=== PATIENT | female | born 1990 | race Two or more races ===

== ENCOUNTER 2017-09-04 04:37 | Emergency (ER) | payer BC, OTHER ==
[2017-09-04] MEDS ORDERED: Sodium Chloride 0.9% 10 ML Syringe FLUSH PRN (04:47)
[2017-09-04] MEDS ORDERED: Aspirin 81 MG Tab.Chew PO ONE (04:47)
[2017-09-04] MEDS ORDERED: Sodium Chloride 0.9% 1,000 ML IV ONE (04:47)
[2017-09-04] MEDS ORDERED: Sodium Chloride 0.9% 2.5 ML Syringe FLUSH PRN ×2 (04:47)
[2017-09-04] MEDS ORDERED: LORazepam 2 MG/ML SDV IVPUSH ONE (04:49)
--- NOTE | 2017-09-04 05:00 | EDM.PDOC ---
ED HPI GENERAL MEDICAL PROBLEM - General Chief Complaint: Chest Pain Stated Complaint: CHEST PAIN Time Seen by Provider: 09/04/17 04:47 Source of Information: Reports: Patient History Limitations: Reports: No Limitations - History of Present Illness INITIAL COMMENTS - FREE TEXT/NARRATIVE: HISTORY AND PHYSICAL: History of present illness: 27-year-old female presenting the emergency department with chief complaint of chest pain 2 hours. Patient states that she began have sharp stabbing chest pain approximately 2 hours ago. His continuous sharp and substernal without radiation. She has no associated nausea or vomiting but some shortness of breath and diaphoresis. Denies any significant cardiac history. She does have a history of asthma. States that she's had a cough for the last 2 weeks and was recently given a prescription for azithromycin as well as a antitussive/expectorant with codeine by a PA at [facility]. Was told that he thought she may have pertussis. She had recent travel to [place] and returned with a "stomach bug" that resulted in diarrhea for a few days but this has passed. Denies any leg pain or history of coagulation disorders. Patient denies any associated palpitations, syncopal episodes, or focal neurologic deficits. On initial exam patient is tearful and significantly anxious. Pain is not reproducible on exam. Cardiac tachycardia normal S1-S2 regular rhythm, lungs clear to breath sounds bilaterally, Abdelrahman negative. No acute findings on general exam. After 1 mg of Ativan patient did feel much improved, but still having mild substernal chest pain with deep breaths. Patient given 2 mg morphine. Review of systems: As per history of present illness and below otherwise all systems reviewed and negative. Past medical history: As per history of present illness and as reviewed below otherwise noncontributory. Surgical history: As per history of present illness and as reviewed below otherwise noncontributory. Social history: No reported history of drug or alcohol abuse. Family history: As per history of present illness and as reviewed below otherwise noncontributory. Physical exam: HEENT: Atraumatic, normocephalic, pupils reactive, negative for conjunctival pallor or scleral icterus, mucous membranes moist, throat clear, neck supple, nontender, trachea midline. Lungs: Clear to auscultation, breath sounds equal bilaterally, chest nontender. Heart: S1S2, regular, negative for clicks, rubs, or JVD. Abdomen: Soft, nondistended, nontender. Negative for masses or hepatosplenomegaly. Negative for costovertebral tenderness. Pelvis: Stable nontender. Genitourinary: Deferred. Rectal: Deferred. Extremities: Atraumatic, negative for cords or calf pain. Neurovascular unremarkable. Neuro: Awake, alert, oriented. Cranial nerves II through XII unremarkable. Cerebellum unremarkable. Motor and sensory unremarkable throughout. Exam nonfocal. Diagnostics: CBC, CMP, troponin, INR, EKG, chest x-ray, UA Therapeutics: 324 mg ASA, 1 mg Ativan IV 1, 1 L normal saline IV 1, 2 mg IV morphine 1 Tessalon Perles Impression: Atypical chest pain Pleuritic chest pain Pleurisy Plan: CBC showed mild leukocytosis however patient is currently being treated with azithromycin and I think it is most likely due to stress response when she initially presented. She is been afebrile with no other signs of infection. Chest x-ray was unremarkable. CMP did show some mild bump in her creatinine to 1.1 and her urine analysis was fairly concentrated suspect mild dehydration. I did have her 1 L normal saline and instructed her to continue to push fluids. EKG showed no signs of ischemia/ST changes and troponin was negative. Patient most likely has pleuritic chest pain from pleurisy from her constant coughing over the past 2-3 weeks. Instructed her to use ibuprofen up to 3000 mg a day and follow-up with her primary care provider. She should return to emergency department if she has any new or worsening symptoms. chest Pain Score (Numeric/FACES): 8 - Related Data Allergies Allergy/AdvReac Type Severity Reaction Status Date / Time No Known Allergies Allergy Verified 09/04/17 04:44 Home Meds: Home Meds Albuterol Sulfate [Proventil Hfa] 1 puff INH ASDIRECTED 09/04/17 [History] Cetirizine [ZyrTEC] 0 mg PO ASDIRECTED 09/04/17 [History] Past Medical History - Past Health History Medical/Surgical History: Denies Medical/Surgical History Respiratory History: Reports: Asthma Social & Family History - Family History Family Medical History: Noncontributory - Tobacco Use Smoking Status *Q: Never Smoker - Recreational Drug Use Recreational Drug Use: No ED ROS GENERAL - Review of Systems Review Of Systems: ROS reveals no pertinent complaints other than HPI. ED EXAM, GENERAL - Physical Exam Exam: See Below Course - Vital Signs Last Recorded V/S: Last Vital Signs Temp 98.5 F 09/04/17 04:37 Pulse 98 09/04/17 05:46 Resp 19 09/04/17 05:46 BP 112/64 09/04/17 05:46 Pulse Ox 96 09/04/17 05:46 - Orders/Labs/Meds Orders: Active Orders 24 hr Category Date Time Status Cardiac Monitoring [RC] . DIRECTED Care 09/04/17 04:47 Active EKG Documentation Completion [RC] STAT Care 09/04/17 04:47 Active Oxygen Therapy [RC] ASDIRECTED Care 09/04/17 04:47 Active Pulse Oximetry [RC] ASDIRECTED Care 09/04/17 04:47 Active Chest 1V Frontal [CR] Stat Exams 09/04/17 04:47 Taken HCG QUALITATIVE,URINE [URCHEM] Stat Lab 09/04/17 04:56 Ordered UA W/MICROSCOPIC [URIN] Stat Lab 09/04/17 04:56 Ordered Sodium Chloride 0.9% [Saline Flush] Med 09/04/17 04:47 Active 10 ml FLUSH ASDIRECTED PRN Sodium Chloride 0.9% [Saline Flush] Med 09/04/17 04:47 Active 2.5 ml FLUSH ASDIRECTED PRN Sodium Chloride 0.9% [Saline Flush] Med 09/04/17 04:47 Active 2.5 ml FLUSH ASDIRECTED PRN Saline Lock Insert [OM.PC] Stat Oth 09/04/17 04:47 Ordered Medication Orders Sodium Chloride (Saline Flush) 2.5 ml FLUSH ASDIRECTED PRN PRN Reason: Keep Vein Open Last Admin: 09/04/17 04:55 Dose: 2.5 ml Sodium Chloride (Saline Flush) 10 ml FLUSH ASDIRECTED PRN PRN Reason: Keep Vein Open Last Admin: 09/04/17 04:56 Dose: 10 ml Sodium Chloride (Saline Flush) 2.5 ml FLUSH ASDIRECTED PRN PRN Reason: Keep Vein Open Labs: Laboratory Tests 09/04/17 09/04/17 09/04/17 Range/Units 04:55 04:55 04:55 WBC 16.79 H (4.0-11.0) K/uL RBC 4.86 (4.30-5.90) M/uL Hgb 14.4 (12.0-16.0) g/dL Hct 41.6 (36.0-46.0) % MCV 85.6 (80.0-98.0) fL MCH 29.6 (27.0-32.0) pg MCHC 34.6 (31.0-37.0) g/dL RDW Std Deviation 40.2 (28.0-62.0) fl RDW Coeff of [place] 13 (11.0-15.0) % Plt Count 364 (150-400) K/uL MPV 9.80 (7.40-12.00) fL Neut % (Auto) 86.0 H (48.0-80.0) % Lymph % (Auto) 5.2 L (16.0-40.0) % [place] % (Auto) 2.9 (0.0-15.0) % Eos % (Auto) 5.7 (0.0-7.0) % Baso % (Auto) 0.2 (0.0-1.5) % Neut # (Auto) 14.4 H (1.4-5.7) K/uL Lymph # (Auto) 0.9 (0.6-2.4) K/uL [place] # (Auto) 0.5 (0.0-0.8) K/uL Eos # (Auto) 1.0 H (0.0-0.7) K/uL Baso # (Auto) 0.0 (0.0-0.1) K/uL Nucleated RBC % 0.0 /100WBC Nucleated RBCs # 0 K/uL INR 1.07 D-Dimer, Quantitative 0.43 (0.0-0.52) mg/LFEU Sodium 137 (136-145) mmol/L Potassium 3.5 (3.5-5.1) mmol/L Chloride 100 (98-107) mmol/L Carbon Dioxide 21.9 (21.0-32.0) mmol/L BUN 23 H (7.0-18.0) mg/dL Creatinine 1.1 H (0.6-1.0) mg/dL Est Cr Clr Drug Dosing 72.55 mL/min Estimated GFR (MDRD) > 60.0 ml/min Glucose 124 H (74-106) mg/dL Calcium 9.2 (8.5-10.1) mg/dL Total Bilirubin 1.0 (0.2-1.0) mg/dL AST 28 (15-37) IU/L ALT 27 (14-63) IU/L Alkaline Phosphatase 96 (46-116) U/L Troponin I < 0.050 (0.000-0.056) ng/mL Total Protein 8.7 H (6.4-8.2) g/dL Albumin 4.2 (3.4-5.0) g/dL Globulin 4.5 H (2.0-3.5) g/dL Albumin/Globulin Ratio 0.9 L (1.3-2.8) Urine Color Urine Appearance Urine pH (5.0-8.0) Ur Specific [place] (1.001-1.035) Urine Protein (NEGATIVE) mg/dL Urine Glucose (UA) (NEGATIVE) mg/dL Urine Ketones (NEGATIVE) mg/dL Urine Occult Blood (NEGATIVE) Urine Nitrite (NEGATIVE) Urine Bilirubin (NEGATIVE) Urine Urobilinogen (<2.0) EU/dL Ur Leukocyte Esterase (NEGATIVE) Urine RBC (0-2/HPF) Urine WBC (0-5/HPF) Ur Epithelial Cells (NONE-FEW) Amorphous Sediment (NEGATIVE) Urine Bacteria (NEGATIVE) Urine Mucus (NONE-MOD) Urinalysis Comment Urine HCG, Qual (NEGATIVE) 09/04/17 09/04/17 Range/Units 04:56 04:56 WBC (4.0-11.0) K/uL RBC (4.30-5.90) M/uL Hgb (12.0-16.0) g/dL Hct (36.0-46.0) % MCV (80.0-98.0) fL MCH (27.0-32.0) pg MCHC (31.0-37.0) g/dL RDW Std Deviation (28.0-62.0) fl RDW Coeff of [place] (11.0-15.0) % Plt Count (150-400) K/uL MPV (7.40-12.00) fL Neut % (Auto) (48.0-80.0) % Lymph % (Auto) (16.0-40.0) % [place] % (Auto) (0.0-15.0) % Eos % (Auto) (0.0-7.0) % Baso % (Auto) (0.0-1.5) % Neut # (Auto) (1.4-5.7) K/uL Lymph # (Auto) (0.6-2.4) K/uL [place] # (Auto) (0.0-0.8) K/uL Eos # (Auto) (0.0-0.7) K/uL Baso # (Auto) (0.0-0.1) K/uL Nucleated RBC % /100WBC Nucleated RBCs # K/uL INR D-Dimer, Quantitative (0.0-0.52) mg/LFEU Sodium (136-145) mmol/L Potassium (3.5-5.1) mmol/L Chloride (98-107) mmol/L Carbon Dioxide (21.0-32.0) mmol/L BUN (7.0-18.0) mg/dL Creatinine (0.6-1.0) mg/dL Est Cr Clr Drug Dosing mL/min Estimated GFR (MDRD) ml/min Glucose (74-106) mg/dL Calcium (8.5-10.1) mg/dL Total Bilirubin (0.2-1.0) mg/dL AST (15-37) IU/L ALT (14-63) IU/L Alkaline Phosphatase (46-116) U/L Troponin I (0.000-0.056) ng/mL Total Protein (6.4-8.2) g/dL Albumin (3.4-5.0) g/dL Globulin (2.0-3.5) g/dL Albumin/Globulin Ratio (1.3-2.8) Urine Color YELLOW Urine Appearance SLT CLOUDY Urine pH 5.5 (5.0-8.0) Ur Specific [place] >= 1.030 (1.001-1.035) Urine Protein TRACE (NEGATIVE) mg/dL Urine Glucose (UA) NEGATIVE (NEGATIVE) mg/dL Urine Ketones 40 H (NEGATIVE) mg/dL Urine Occult Blood LARGE H (NEGATIVE) Urine Nitrite NEGATIVE (NEGATIVE) Urine Bilirubin SMALL H (NEGATIVE) Urine Urobilinogen 0.2 (<2.0) EU/dL Ur Leukocyte Esterase NEGATIVE (NEGATIVE) Urine RBC 25-30 (0-2/HPF) Urine WBC 6-8 (0-5/HPF) Ur Epithelial Cells FEW (NONE-FEW) Amorphous Sediment FEW (NEGATIVE) Urine Bacteria FEW (NEGATIVE) Urine Mucus FEW (NONE-MOD) Urinalysis Comment Urine HCG, Qual NEGATIVE (NEGATIVE) Meds: Medications Generic Name Dose Route Start Last Admin Trade Name Freq PRN Reason Stop Dose Admin Sodium Chloride 2.5 ml 09/04/17 04:47 09/04/17 04:55 Saline Flush FLUSH 2.5 ml ASDIRECTED PRN Administration Keep Vein Open Sodium Chloride 10 ml 09/04/17 04:47 09/04/17 04:56 Saline Flush FLUSH 10 ml ASDIRECTED PRN Administration Keep Vein Open Sodium Chloride 2.5 ml 09/04/17 04:47 Saline Flush FLUSH ASDIRECTED PRN Keep Vein Open Discontinued Medications Generic Name Dose Route Start Last Admin Trade Name Freq PRN Reason Stop Dose Admin Aspirin 324 mg 09/04/17 04:47 09/04/17 04:56 Aspirin PO 09/04/17 04:48 324 mg ONETIME ONE Administration Sodium Chloride 1,000 mls @ 999 mls/hr 09/04/17 04:47 09/04/17 04:57 Normal Saline IV 09/04/17 05:47 999 mls/hr .Bolus ONE Administration Lorazepam 1 mg 09/04/17 04:49 09/04/17 04:57 Ativan IVPUSH 09/04/17 04:50 1 mg ONETIME ONE Administration Morphine Sulfate 2 mg 09/04/17 05:32 09/04/17 05:52 Morphine IVPUSH 09/04/17 05:33 2 mg ONETIME ONE Administration Departure - Departure Time of Disposition: 06:05 Disposition: Home, Self-Care 01 Condition: Good Clinical Impression: Pleurisy without effusion, Atypical chest pain - Discharge Information Referrals: PCP,None [Primary Care Provider] - Forms: ED Department Discharge Additional Instructions: My general discharge The following information is given to patients seen in the emergency department who are being discharged to home. This information is to outline your options for follow-up care. We provide all patients seen in our emergency department with a follow-up referral. The need for follow-up, as well as the timing and circumstances, are variable depending upon the specifics of your emergency department visit. If you don't have a primary care physician on staff, we will provide you with a referral. We always advise you to contact your personal physician following an emergency department visit to inform them of the circumstance of the visit and for follow-up with them and/or the need for any referrals to a consulting specialist. The emergency department will also refer you to a specialist when appropriate. This referral assures that you have the opportunity for follow-up care with a specialist. All of these measure are taken in an effort to provide you with optimal care, which includes your follow-up. Under all circumstances we always encourage you to contact your private physician who remains a resource for coordinating your care. When calling for follow-up care, please make the office aware that this follow-up is from your recent emergency room visit. If for any reason you are refused follow-up, please contact the [facility] Emergency Department at and asked to speak to the emergency department charge nurse. [facility] [address] [place] [phone] [facility] - Women's Health [address] [place] [id number] 1. Take ibuprofen up to 3000 mg a day for pain and inflammation. 2. Take Tessalon for cough. 3. Continue to take previous prescription from another provider. 4. Follow-up with primary care provider. 5. Return to emergency department if any new or worsening symptoms. - My Orders Last 24 Hours: My Active Orders 09/04/17 04:47 Cardiac Monitoring [RC] . DIRECTED EKG Documentation Completion [RC] STAT Oxygen Therapy [RC] ASDIRECTED Pulse Oximetry [RC] ASDIRECTED Chest 1V Frontal [CR] Stat Sodium Chloride 0.9% [Saline Flush] 10 ml FLUSH ASDIRECTED PRN Sodium Chloride 0.9% [Saline Flush] 2.5 ml FLUSH ASDIRECTED PRN Sodium Chloride 0.9% [Saline Flush] 2.5 ml FLUSH ASDIRECTED PRN Saline Lock Insert [OM.PC] Stat 09/04/17 04:56 HCG QUALITATIVE,URINE [URCHEM] Stat UA W/MICROSCOPIC [URIN] Stat - Assessment/Plan Last 24 Hours: My Active Orders 09/04/17 04:47 Cardiac Monitoring [RC] . DIRECTED EKG Documentation Completion [RC] STAT Oxygen Therapy [RC] ASDIRECTED Pulse Oximetry [RC] ASDIRECTED Chest 1V Frontal [CR] Stat Sodium Chloride 0.9% [Saline Flush] 10 ml FLUSH ASDIRECTED PRN Sodium Chloride 0.9% [Saline Flush] 2.5 ml FLUSH ASDIRECTED PRN Sodium Chloride 0.9% [Saline Flush] 2.5 ml FLUSH ASDIRECTED PRN Saline Lock Insert [OM.PC] Stat 09/04/17 04:56 HCG QUALITATIVE,URINE [URCHEM] Stat UA W/MICROSCOPIC [URIN] Stat
[2017-09-04] MEDS ORDERED: Morphine 2 MG/ML Syringe IVPUSH ONE (05:32)
[2017-09-04 05:44] LABS: CHLORIDE,CL 100 mmol/L (98-107); SODIUM,NA 137 mmol/L (136-145)
[2017-09-04] MEDS ORDERED: Ketorolac 30 MG/ML SDV IVPUSH ONE (06:09)
[2017-09-04 06:20] VITALS: BP 109/60
--- NOTE | 2017-09-04 16:44 | CR ---
EXAM DATE: 09/04/17 PATIENT'S AGE: 27 Patient: JUSTIN PEARL Facility: [place], [place] Site . Site : 1990 Study: XRay Chest [id number]/22/2018 5:56:25 AM Ordering Physician: Calixto Amaro Final Report: INDICATION: Chest pain and shortness of breath TECHNIQUE: Chest radiograph 1 view COMPARISON: None FINDINGS: Mediastinum: The heart silhouette is normal in size and morphology. The mediastinum is normal in appearance. Lungs: Both lungs are unremarkable in appearance. No sign of pleural effusion seen. No pneumothorax is identified. Bones and soft tissue: Unremarkable for age. IMPRESSION: 1. No acute cardiopulmonary disease is seen. Dictated by: Wilian Lancaster MD @ 09/04/2017 05:56:54 (Electronic Signature) Report Signed by Proxy. [facility] CENTEROrlin
== END 2017-09-04 06:49 | disposition home or self-care (01) ==
LOC: MW.ED 04:37
DX: R09.1 Pleurisy (principal); R07.89 Other chest pain
CPT/HCPCS: 71045; 80053; 81001; 81025; 84484; 85025; 85379; 85610; 93005; 96361; 96374; 96375; 99284; A9270; J1885; J2060; J2270; J7040

== ENCOUNTER 2018-09-12 10:07 | Inpatient (IN) | payer BC ==
[2018-09-12] MEDS ORDERED: Nalbuphine 10 MG/1 ML Vial IVPUSH PRN (10:47)
[2018-09-12] MEDS ORDERED: Carboprost Tromethamine 250 MCG/1 ML Amp IM PRN (10:47)
[2018-09-12] MEDS ORDERED: Sodium Chloride 0.9% 2.5 ML Syringe FLUSH PRN (10:47)
[2018-09-12] MEDS ORDERED: Water For Irrigation,Sterile 1,000 ML Container IRR PRN (10:47)
[2018-09-12] MEDS ORDERED: Butorphanol 1 MG/ML SDV IVPUSH PRN (10:47)
[2018-09-12] MEDS ORDERED: Sodium Chloride 0.9% 10 ML SDV IV PRN (10:47)
[2018-09-12] MEDS ORDERED: Lidocaine 1% 50 ML MDV INJECT PRN (10:47)
[2018-09-12] MEDS ORDERED: Misoprostol 200 MCG Tab PO PRN (10:47)
[2018-09-12] MEDS ORDERED: Methylergonovine 0.2 MG/1 ML Amp IM PRN (10:47)
[2018-09-12] MEDS ORDERED: Tranexamic Acid 1,000 MG in Sodium Chloride 0.9% 100 ML IV PRN (10:47)
[2018-09-12] MEDS ORDERED: Sodium Chloride 0.9% 10 ML Syringe FLUSH PRN (10:47)
[2018-09-12] MEDS ORDERED: Ondansetron 4 MG/2 ML SDV IVPUSH PRN (10:55)
[2018-09-12] MEDS ORDERED: Oxytocin/0.9 % Sodium Chloride 30 UNIT/500 ML BAG IV SCH (11:00)
[2018-09-12] MEDS: Lactated Ringers 1,000 ML IV SCH ×2 (11:53→16:26)
[2018-09-12] MEDS: Misoprostol 25 MCG (1/4 of 100 MCG) Tab PO SCH ×3 (11:53→21:21)
[2018-09-12] MEDS: Misoprostol 50 MCG (1/2 of 100 MCG) Tab VAG SCH ×3 (11:54→21:22)
--- NOTE | 2018-09-12 13:28 | PCM.LDHP ---
L&D History of Present Illness - General Date of Service: 09/12/18 Admit Problem/Dx: Patient Status Order with Admit Dx/Problem 09/12/18 10:47 Patient Status [ADT] Routine Admission Diagnosis/Problem Admission Diagnosis/Problem - planned Source of Information: Patient History Limitations: Reports: No Limitations - History of Present Illness Improves with: Reports: None Worsens with: Reports: None Associated Symptoms: Reports: N - Related Data Allergies/Adverse Reactions: Allergies Allergy/AdvReac Type Severity Reaction Status Date / Time No Known Allergies Allergy Verified 09/12/18 10:37 Home Medications: Home Meds Albuterol Sulfate [Proventil Hfa] 1 puff INH ASDIRECTED 09/04/17 [History] Cetirizine [ZyrTEC] 0 mg PO ASDIRECTED 09/04/17 [History] Past Medical History - Past Health History Medical/Surgical History: Denies Medical/Surgical History Respiratory History: Reports: Asthma Social & Family History - Family History Family Medical History: Noncontributory H&P Review of Systems - Review of Systems: Review Of Systems: See Below General: Reports: No Symptoms HEENT: Reports: No Symptoms Pulmonary: Reports: No Symptoms Cardiovascular: Reports: No Symptoms Gastrointestinal: Reports: No Symptoms Genitourinary: Reports: No Symptoms Musculoskeletal: Reports: No Symptoms Skin: Reports: No Symptoms Psychiatric: Reports: No Symptoms Neurological: Reports: No Symptoms Hematologic/Lymphatic: Reports: No Symptoms Immunologic: Reports: No Symptoms L&D Exam - Exam Exam: See Below - Vital Signs Weight: 85.729 kg - OB Specific Contraction Intensity: Mild Movement: Active Heart Tones: Present Presentation: Vertex - Piña Score Piña Score Cervix Position: Anterior Piña Score Consistency: Medium Piña Score Effacement: 51-70% Piña Score Dilation: 1-2 cm Piña Score Infant's Station: -3 Piña Score Total: 6 - Exam General: Alert, Oriented HEENT: PERRLA, Conjunctiva Clear, EACs Clear, EOMI, Hearing Intact, Mucosa Moist & [place], Nares Patent, Normal Nasal Septum, Posterior Pharynx Clear, TMs Clear Neck: Supple, Trachea Midline Lungs: Clear to Auscultation, Normal Respiratory Effort Cardiovascular: Regular Rate, Regular Rhythm GI/Abdominal Exam: Normal Bowel Sounds, Soft, Non-Tender, No Organomegaly, No Distention, No Abnormal Bruit, No Mass, Pelvis Stable Rectal Exam: Normal Exam, Normal Rectal Tone Genitourinary: Normal external exam, Normal bimanual exam, Normal speculum exam Back Exam: Normal Inspection, Full Range of Motion Extremities: Normal Inspection, Normal Range of Motion, Non-Tender, No Pedal Edema, Normal Capillary Refill Skin: Warm, Dry, Intact Neurological: Cranial Nerves Intact, Reflexes Equal Bilateral Psychiatric: Alert, Normal Affect, Normal Mood - Patient Data Lab Results Last 24 hrs: Laboratory Results - last 24 hr 09/12/18 09/12/18 Range/Units 11:21 11:21 WBC 8.63 (4.0-11.0) K/uL RBC 3.88 L (4.30-5.90) M/uL Hgb 10.5 L (12.0-16.0) g/dL Hct 32.8 L (36.0-46.0) % MCV 84.5 (80.0-98.0) fL MCH 27.1 (27.0-32.0) pg MCHC 32.0 (31.0-37.0) g/dL RDW Std Deviation 40.3 (28.0-62.0) fl RDW Coeff of [place] 13 (11.0-15.0) % Plt Count 312 (150-400) K/uL MPV 10.70 (7.40-12.00) fL Nucleated RBC % 0.0 /100WBC Nucleated RBCs # 0 K/uL Blood Type O POSITIVE Antibody Screen NEGATIVE Result Diagrams: 09/12/18 11:21 Problem List Initiated/Reviewed/Updated: Yes Orders Last 24hrs: Active Orders 24 hr Category Date Time Status Patient Status [ADT] Routine ADT 09/12/18 10:47 Active Heart Tones [RC] CONTINUOUS Care 09/12/18 10:47 Active Non Stress Test [RC] PER UNIT ROUTINE Care 09/12/18 10:47 Active May Shower [RC] ASDIRECTED Care 09/12/18 10:47 Active Notify Provider [RC] PRN Care 09/12/18 10:47 Active Up ad Nae [RC] ASDIRECTED Care 09/12/18 10:47 Active Vaginal Exam [RC] PRN Care 09/12/18 10:47 Active Vital Signs [RC] PER UNIT ROUTINE Care 09/12/18 10:47 Active Butorphanol [Stadol] Med 09/12/18 10:47 Active 1 mg IVPUSH Q1H PRN Carboprost Tromethamine [Hemabate DS] Med 09/12/18 10:47 Active 250 mcg IM ASDIRECTED PRN Lactated Ringers [Ringers, Lactated] 1,000 ml Med 09/12/18 11:00 Active IV ASDIRECTED Lidocaine 1% [Xylocaine 1%] Med 09/12/18 10:47 Active 50 ml INJECT ONETIME PRN Methylergonovine [Methergine] Med 09/12/18 10:47 Active 0.2 mg IM ASDIRECTED PRN Nalbuphine [Nubain] Med 09/12/18 10:47 Active 10 mg IVPUSH Q1H PRN Ondansetron [Zofran] Med 09/12/18 10:55 Active 4 mg IVPUSH Q6H PRN Oxytocin/0.9 % Sodium Chloride [Oxytocin 30 Unit/500 ML Med 09/12/18 11:00 Active -NS] 30 unit in 500 ml IV TITRATE Sodium Chloride 0.9% [Normal Saline] Med 09/12/18 10:47 Active 10 ml IV ASDIRECTED PRN Sodium Chloride 0.9% [Saline Flush] Med 09/12/18 10:47 Active 10 ml FLUSH ASDIRECTED PRN Sodium Chloride 0.9% [Saline Flush] Med 09/12/18 10:47 Active 2.5 ml FLUSH ASDIRECTED PRN Tranexamic Acid [Cyklokapron] 1,000 mg Med 09/12/18 10:47 Active Sodium Chloride 0.9% [Normal Saline] 100 ml IV ONETIME Water For Irrigation,Sterile [Sterile Water for Med 09/12/18 10:47 Active Irrigation] 1,000 ml IRR ASDIRECTED PRN miSOPROStol [Cytotec] Med 09/12/18 10:47 Active 200 mcg PO ONETIME PRN miSOPROStol [Cytotec] Med 09/12/18 11:00 Active 25 mcg PO Q4H miSOPROStol [Cytotec] Med 09/12/18 11:00 Active 25 mcg VAG Q4H Scalp Electrode [WOMSER] Per Unit Routine Oth 09/12/18 10:47 Ordered Peripheral IV Insertion Adult [OM.PC] Routine Oth 09/12/18 10:47 Ordered Resuscitation Status Routine Resus Stat 09/12/18 10:47 Ordered Medication Orders Butorphanol Tartrate (Stadol) 1 mg IVPUSH Q1H PRN PRN Reason: Pain Carboprost Tromethamine (Hemabate Ds) 250 mcg IM ASDIRECTED PRN PRN Reason: Post Hemorrhage Lactated Ringer's (Ringers, Lactated) 1,000 mls @ 150 mls/hr IV ASDIRECTED [facility] Last Admin: 09/12/18 11:53 Dose: 150 mls/hr Oxytocin/Sodium Chloride (Oxytocin 30 Unit/500 Ml-Ns) 30 unit in 500 mls @ 500 mls/hr IV TITRATE [facility] Tranexamic Acid 1,000 mg/ (Sodium Chloride) 110 mls @ 660 mls/hr IV ONETIME PRN PRN Reason: Bleeding Lidocaine HCl (Xylocaine 1%) 50 ml INJECT ONETIME PRN PRN Reason: Laceration repair Methylergonovine Maleate (Methergine) 0.2 mg IM ASDIRECTED PRN PRN Reason: Post Hemorrhage Misoprostol (Cytotec) 200 mcg PO ONETIME PRN PRN Reason: Post Hemorrhage Misoprostol (Cytotec) 25 mcg PO Q4H [facility] Last Admin: 09/12/18 11:53 Dose: 25 mcg Misoprostol (Cytotec) 25 mcg VAG Q4H [facility] Last Admin: 09/12/18 11:54 Dose: 25 mcg Nalbuphine HCl (Nubain) 10 mg IVPUSH Q1H PRN PRN Reason: Pain (severe 7-10) Ondansetron HCl (Zofran) 4 mg IVPUSH Q6H PRN PRN Reason: Nausea/Vomiting Sodium Chloride (Saline Flush) 10 ml FLUSH ASDIRECTED PRN PRN Reason: Keep Vein Open Sodium Chloride (Saline Flush) 2.5 ml FLUSH ASDIRECTED PRN PRN Reason: Keep Vein Open Sodium Chloride (Normal Saline) 10 ml IV ASDIRECTED PRN PRN Reason: IV Use Sterile Water (Sterile Water For Irrigation) 1,000 ml IRR ASDIRECTED PRN PRN Reason: delivery Assessment/Plan Comment:: IUP 40 wks admitted for elective induction.
[2018-09-13] MEDS ORDERED: Oxytocin/0.9 % Sodium Chloride 30 UNIT/500 ML BAG IV SCH (08:45)
[2018-09-13] MEDS: Lactated Ringers 1,000 ML IV SCH ×2 (12:58→15:37)
[2018-09-13] MEDS ORDERED: fentaNYL/Bupivacaine-NS 2 MCG/ML-0.125%/PF 100 ML Bag EPIDUR ONE (13:40)
[2018-09-13] MEDS ORDERED: fentaNYL 100 MCG/2 ML SDV IVPUSH ONE (13:40)
[2018-09-13] MEDS ORDERED: ePHEDrine 50 MG/ML SDV ONE (13:49)
--- NOTE | 2018-09-13 14:18 | PCM.PREANE ---
Preanesthetic Assessment - Anesthesia/Transfusion/Family Hx Anesthesia History: No Prior Anesthesia Family History of Anesthesia Reaction: No Transfusion History: Unknown Intubation History: Unknown - Review of Systems General: No Symptoms Pulmonary: No Symptoms Cardiovascular: No Symptoms, Orthopnea Neurological: No Symptoms Other: Reports: None - Physical Assessment Height: 5 ft 6 in Weight: 85.729 kg ASA Class: 2 Mental Status: Alert & Oriented x3 Airway Class: Mallampati = 2 Dentition: Reports: Normal Dentition Thyro-Mental Finger Breadths: 3 Mouth Opening Finger Breadths: 3 ROM/Head Extension: Full Lungs: Clear to Auscultation, Normal Respiratory Effort Cardiovascular: Regular Rate, Regular Rhythm - Lab Values: Laboratory Last Values WBC 8.63 K/uL (4.0-11.0) 09/12/18 11:21 RBC 3.88 M/uL (4.30-5.90) L 09/12/18 11:21 Hgb 10.5 g/dL (12.0-16.0) L 09/12/18 11:21 Hct 32.8 % (36.0-46.0) L 09/12/18 11:21 MCV 84.5 fL (80.0-98.0) 09/12/18 11:21 MCH 27.1 pg (27.0-32.0) 09/12/18 11:21 MCHC 32.0 g/dL (31.0-37.0) 09/12/18 11:21 RDW Std Deviation 40.3 fl (28.0-62.0) 09/12/18 11:21 RDW Coeff of [place] 13 % (11.0-15.0) 09/12/18 11:21 Plt Count 312 K/uL (150-400) 09/12/18 11:21 MPV 10.70 fL (7.40-12.00) 09/12/18 11:21 Nucleated RBC % 0.0 /100WBC 09/12/18 11:21 Nucleated RBCs # 0 K/uL 09/12/18 11:21 Blood Type O POSITIVE 09/12/18 11:21 Antibody Screen NEGATIVE 09/12/18 11:21 - Allergies Allergies/Adverse Reactions: Allergies Allergy/AdvReac Type Severity Reaction Status Date / Time No Known Allergies Allergy Verified 09/12/18 10:37 - Blood Blood Available: No - Anesthesia Plan Pre-Op Medication Ordered: None - Acknowledgements Anesthesia Type Planned: Epidural Pt an Appropriate Candidate for the Planned Anesthesia: Yes Alternatives and Risks of Anesthesia Discussed w Pt/Guardian: Yes Pt/Guardian Understands and Agrees with Anesthesia Plan: Yes PreAnesthesia Questionnaire - Past Health History Medical/Surgical History: Denies Medical/Surgical History Respiratory History: Reports: Asthma 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: - SUBSTANCE USE Smoking Status *Q: Never Smoker - HOME MEDS Home Medications: Home Meds Albuterol Sulfate [Proventil Hfa] 1 puff INH ASDIRECTED 09/04/17 [History] Cetirizine [ZyrTEC] 0 mg PO ASDIRECTED 09/04/17 [History] - CURRENT (IN HOUSE) MEDS Current Meds: Current Medications Butorphanol Tartrate (Stadol) 1 mg IVPUSH Q1H PRN PRN Reason: Pain Last Admin: 09/13/18 12:10 Dose: 1 mg Carboprost Tromethamine (Hemabate Ds) 250 mcg IM ASDIRECTED PRN PRN Reason: Post Hemorrhage Lactated Ringer's (Ringers, Lactated) 1,000 mls @ 150 mls/hr IV ASDIRECTED ADE Last Admin: 09/13/18 12:58 Dose: 150 mls/hr Oxytocin/Sodium Chloride (Oxytocin 30 Unit/500 Ml-Ns) 30 unit in 500 mls @ 500 mls/hr IV TITRATE ADE Tranexamic Acid 1,000 mg/ (Sodium Chloride) 110 mls @ 660 mls/hr IV ONETIME PRN PRN Reason: Bleeding Oxytocin/Sodium Chloride (Oxytocin 30 Unit/500 Ml-Ns) 30 unit in 500 mls @ 2 mls/hr IV TITRATE ADE; Protocol Last Titration: 09/13/18 11:37 Dose: 8 munits/min, 8 mls/hr Lidocaine HCl (Xylocaine 1%) 50 ml INJECT ONETIME PRN PRN Reason: Laceration repair Methylergonovine Maleate (Methergine) 0.2 mg IM ASDIRECTED PRN PRN Reason: Post Hemorrhage Misoprostol (Cytotec) 200 mcg PO ONETIME PRN PRN Reason: Post Hemorrhage Misoprostol (Cytotec) 25 mcg PO Q4H ADE Last Admin: 09/12/18 21:21 Dose: 25 mcg Misoprostol (Cytotec) 25 mcg VAG Q4H ADE Last Admin: 09/12/18 21:22 Dose: 25 mcg Nalbuphine HCl (Nubain) 10 mg IVPUSH Q1H PRN PRN Reason: Pain (severe 7-10) Ondansetron HCl (Zofran) 4 mg IVPUSH Q6H PRN PRN Reason: Nausea/Vomiting Sodium Chloride (Saline Flush) 10 ml FLUSH ASDIRECTED PRN PRN Reason: Keep Vein Open Sodium Chloride (Saline Flush) 2.5 ml FLUSH ASDIRECTED PRN PRN Reason: Keep Vein Open Sodium Chloride (Normal Saline) 10 ml IV ASDIRECTED PRN PRN Reason: IV Use Sterile Water (Sterile Water For Irrigation) 1,000 ml IRR ASDIRECTED PRN PRN Reason: delivery Discontinued Medications Ephedrine Sulfate (Ephedrine Sulfate) Confirm Administered Dose 50 mg .ROUTE .[facility] ONE Stop: 09/13/18 13:50
[2018-09-13] MEDS ORDERED: Witch Hazel Medicated Pads 40/Jar TOP PRN (19:09)
[2018-09-13] MEDS ORDERED: Acetaminophen 500 MG Tab PO PRN ×2 (19:09)
[2018-09-13] MEDS ORDERED: Ibuprofen 400 MG Tab PO PRN (19:09)
[2018-09-13] MEDS ORDERED: Bisacodyl 10 MG Supp RECTAL PRN (19:09)
[2018-09-13] MEDS ORDERED: Benzocaine/Menthol 20%-0.5% Spray 78 GM Cannister TOP PRN (19:09)
[2018-09-13] MEDS ORDERED: Lanolin 100% Cream 7 GM Tube TOP PRN (19:09)
[2018-09-13] MEDS ORDERED: Docusate Sodium 100 MG Cap PO PRN (19:09)
[2018-09-13] MEDS ORDERED: oxyCODONE 5 MG Tab PO PRN (19:09)
--- NOTE | 2018-09-14 02:32 | OR ---
SURGEON: Jalen Knox MD DATE OF PROCEDURE: Ms. Guzman is primigravida. She was followed in our clinic. She had been seen primarily by me. She had no issue. Her GBS status was negative. She is 40+ weeks. She is admitted for elective induction. She was induced with Cytotec and that followed with Pitocin. I did an artificial rupture of the membrane on the patient when she was 4 cm, and it was clear fluid. The patient then started on Pitocin and she had epidural anesthesia for labor analgesia. The patient progressed without any problem and then she became complete-complete vertex +2. The fetus started having tachycardia. I was consulted, and I offered the patient to have vacuum extraction. They consented. However, I could not get the vacuum latching to the head because the fetus had a lot of hair, so we abandon the vacuum, and we asked the patient to push, and she was able to accomplish a normal spontaneous vaginal delivery of a male fetus. score reported to be 7 and 9. The weight is not available. The placenta delivered spontaneous, complete, and intact. There was no need for episiotomy. There was no labial or perineal laceration. Estimated blood loss 350 to 400 mL. heart rate was category 1 through the entire process of labor. There was no complication in labor or the delivery. HEMANTH / SHELBY /[id number]
--- NOTE | 2018-09-14 08:26 | PCM.PNPP ---
- General Info Date of Service: 09/14/18 Functional Status: Reports: Pain Controlled - Review of Systems General: Reports: No Symptoms HEENT: Reports: No Symptoms Pulmonary: Reports: No Symptoms Cardiovascular: Reports: No Symptoms Gastrointestinal: Reports: No Symptoms Genitourinary: Reports: No Symptoms Musculoskeletal: Reports: No Symptoms Skin: Reports: No Symptoms Neurological: Reports: No Symptoms Psychiatric: Reports: No Symptoms - General Info Date of Service: 09/14/18 - Patient Data Vital Signs - Most Recent: Last Vital Signs Temp 36.7 C 09/14/18 07:20 Pulse 67 09/14/18 07:20 Resp 14 09/14/18 07:20 BP 100/54 L 09/14/18 07:20 Pulse Ox 97 09/14/18 07:20 Weight - Most Recent: 85.729 kg Lab Results - Last 24 Hours: Laboratory Results - last 24 hr 09/14/18 Range/Units 05:30 Hgb 7.8 L (12.0-16.0) g/dL Hct 23.8 L (36.0-46.0) % Med Orders - Current: Current Medications Acetaminophen (Tylenol Extra Strength) 500 mg PO Q4H PRN PRN Reason: Pain Acetaminophen (Tylenol Extra Strength) 1,000 mg PO Q4H PRN PRN Reason: Pain Benzocaine/Menthol (Dermoplast Pain Relief 20%-0.5% [place]) 78 gm TOP ASDIRECTED PRN PRN Reason: Perineal Comfort Measure Bisacodyl (Dulcolax) 10 mg RECTAL ONETIME PRN PRN Reason: Constipation Docusate Sodium (Colace) 100 mg PO BID PRN PRN Reason: Constipation Emollient Ointment (Lansinoh Hpa) 0 gm TOP ASDIRECTED PRN PRN Reason: Sore Nipples Ibuprofen (Motrin) 400 mg PO Q4H PRN PRN Reason: Pain Ibuprofen (Motrin) 800 mg PO Q6H PRN PRN Reason: Pain Oxycodone HCl (Oxycodone) 5 mg PO Q2H PRN PRN Reason: Pain Witch Mandy (Tucks) 1 pad TOP ASDIRECTED PRN PRN Reason: comfort care Discontinued Medications Butorphanol Tartrate (Stadol) 1 mg IVPUSH Q1H PRN PRN Reason: Pain Last Admin: 09/13/18 12:10 Dose: 1 mg Carboprost Tromethamine (Hemabate Ds) 250 mcg IM ASDIRECTED PRN PRN Reason: Post Hemorrhage Ephedrine Sulfate (Ephedrine Sulfate) Confirm Administered Dose 50 mg .ROUTE .[facility] ONE Stop: 09/13/18 13:50 Lactated Ringer's (Ringers, Lactated) 1,000 mls @ 150 mls/hr IV ASDIRECTED ADE Last Admin: 09/13/18 15:37 Dose: 150 mls/hr Oxytocin/Sodium Chloride (Oxytocin 30 Unit/500 Ml-Ns) 30 unit in 500 mls @ 500 mls/hr IV TITRATE ADE Tranexamic Acid 1,000 mg/ (Sodium Chloride) 110 mls @ 660 mls/hr IV ONETIME PRN PRN Reason: Bleeding Oxytocin/Sodium Chloride (Oxytocin 30 Unit/500 Ml-Ns) 30 unit in 500 mls @ 2 mls/hr IV TITRATE [facility]; Protocol Last Titration: 09/13/18 11:37 Dose: 8 munits/min, 8 mls/hr Lidocaine HCl (Xylocaine 1%) 50 ml INJECT ONETIME PRN PRN Reason: Laceration repair Methylergonovine Maleate (Methergine) 0.2 mg IM ASDIRECTED PRN PRN Reason: Post Hemorrhage Misoprostol (Cytotec) 200 mcg PO ONETIME PRN PRN Reason: Post Hemorrhage Misoprostol (Cytotec) 25 mcg PO Q4H [facility] Last Admin: 09/12/18 21:21 Dose: 25 mcg Misoprostol (Cytotec) 25 mcg VAG Q4H [facility] Last Admin: 09/12/18 21:22 Dose: 25 mcg Nalbuphine HCl (Nubain) 10 mg IVPUSH Q1H PRN PRN Reason: Pain (severe 7-10) Ondansetron HCl (Zofran) 4 mg IVPUSH Q6H PRN PRN Reason: Nausea/Vomiting Sodium Chloride (Saline Flush) 10 ml FLUSH ASDIRECTED PRN PRN Reason: Keep Vein Open Sodium Chloride (Saline Flush) 2.5 ml FLUSH ASDIRECTED PRN PRN Reason: Keep Vein Open Sodium Chloride (Normal Saline) 10 ml IV ASDIRECTED PRN PRN Reason: IV Use Sterile Water (Sterile Water For Irrigation) 1,000 ml IRR ASDIRECTED PRN PRN Reason: delivery - Interaction Infant Disposition, : [place] in Room with Family Infant Interaction: Holding Infant Feeding: Attempted ; Nursed Fair/Poor - Recovery Exam Fundal Tone: Firm Fundal Level: 1 Fingerbreadths Below Umbilicus Fundal Placement: Midline Lochia Amount: Small Lochia Color: Rubra/Red Perineum Description: Intact, Minimal Bruising/Swelling - Exam General: Alert, Oriented HEENT: Pupils Equal Neck: Supple Lungs: Clear to Auscultation, Normal Respiratory Effort Cardiovascular: Regular Rate, Regular Rhythm GI/Abdominal Exam: Normal Bowel Sounds, Soft, Non-Tender, No Organomegaly, No Distention, No Abnormal Bruit, No Mass, Pelvis Stable Extremities: Normal Inspection, Normal Range of Motion, Non-Tender, No Pedal Edema, Normal Capillary Refill Skin: Warm, Dry, Intact Wound/Incisions: Healing Well Neurological: No New Focal Deficit Psy/Mental Status: Alert, Normal Affect, Normal Mood - Problem List Review Problem List Initiated/Reviewed/Updated: Yes - Assessment Assessment:: Status post normal spontaneous vaginal delivery uncomplicated the patient is started with low hematocrit 32 and now is dropped to 23.7 however the patient is not hypotensive not orthostatic and she is not bleeding now so we will manage his conservatively and advised the patient to take iron. I am considering discharge in a.m. - Plan Plan:: IUP 40 wks admitted for elective induction.
[2018-09-14] MEDS ORDERED: fentaNYL 100 MCG/2 ML SDV IVPUSH ONE (10:31)
[2018-09-14] MEDS: Ibuprofen 800 MG Tab PO PRN (22:39)
[2018-09-15 07:42] VITALS: BP 110/64
--- NOTE | 2018-09-15 09:39 | PCM.DCSUM1 ---
Discharge Summary - Hospital Course Diagnosis: Stroke: No - Discharge Data Discharge Date: 09/15/18 Discharge Disposition: Home, Self-Care 01 Condition: Good - Patient Instructions Diet: Usual Diet as Tolerated Activity: As Tolerated Driving: Do Not Drive Showering/Bathing: May Shower - Discharge Plan Home Medications: Home Meds Albuterol Sulfate [Proventil Hfa] 1 puff INH ASDIRECTED 09/04/17 [History] Cetirizine [ZyrTEC] 0 mg PO ASDIRECTED 09/04/17 [History] Referrals: [facility] [Outside] Jalen Knox MD [Physician] - 10/18/18 3:00 pm - Discharge Summary/Plan Comment DC Time >30 min.: Yes - General Info Date of Service: 09/15/18 Functional Status: Reports: Pain Controlled - Review of Systems General: Reports: No Symptoms HEENT: Reports: No Symptoms Pulmonary: Reports: No Symptoms Cardiovascular: Reports: No Symptoms Gastrointestinal: Reports: No Symptoms Genitourinary: Reports: No Symptoms Musculoskeletal: Reports: No Symptoms Skin: Reports: No Symptoms Neurological: Reports: No Symptoms Psychiatric: Reports: No Symptoms - Patient Data Vitals - Most Recent: Last Vital Signs Temp 36.3 C 09/15/18 07:21 Pulse 68 09/15/18 07:21 Resp 17 09/15/18 07:21 BP 110/64 09/15/18 07:21 Pulse Ox 98 09/15/18 07:21 Weight - Most Recent: 85.729 kg Med Orders - Current: Current Medications Acetaminophen (Tylenol Extra Strength) 500 mg PO Q4H PRN PRN Reason: Pain Acetaminophen (Tylenol Extra Strength) 1,000 mg PO Q4H PRN PRN Reason: Pain Benzocaine/Menthol (Dermoplast Pain Relief 20%-0.5% [place]) 78 gm TOP ASDIRECTED PRN PRN Reason: Perineal Comfort Measure Last Admin: 09/14/18 10:42 Dose: 1 canister Bisacodyl (Dulcolax) 10 mg RECTAL ONETIME PRN PRN Reason: Constipation Docusate Sodium (Colace) 100 mg PO BID PRN PRN Reason: Constipation Emollient Ointment (Lansinoh Hpa) 0 gm TOP ASDIRECTED PRN PRN Reason: Sore Nipples Last Admin: 09/14/18 22:39 Dose: 7 gm Ibuprofen (Motrin) 400 mg PO Q4H PRN PRN Reason: Pain Ibuprofen (Motrin) 800 mg PO Q6H PRN PRN Reason: Pain Last Admin: 09/14/18 22:39 Dose: 800 mg Oxycodone HCl (Oxycodone) 5 mg PO Q2H PRN PRN Reason: Pain Witch Mandy (Tucks) 1 pad TOP ASDIRECTED PRN PRN Reason: comfort care Discontinued Medications Butorphanol Tartrate (Stadol) 1 mg IVPUSH Q1H PRN PRN Reason: Pain Last Admin: 09/13/18 12:10 Dose: 1 mg Carboprost Tromethamine (Hemabate Ds) 250 mcg IM ASDIRECTED PRN PRN Reason: Post Hemorrhage Ephedrine Sulfate (Ephedrine Sulfate) Confirm Administered Dose 50 mg .ROUTE .[facility] ONE Stop: 09/13/18 13:50 Lactated Ringer's (Ringers, Lactated) 1,000 mls @ 150 mls/hr IV ASDIRECTED ADE Last Admin: 09/13/18 15:37 Dose: 150 mls/hr Oxytocin/Sodium Chloride (Oxytocin 30 Unit/500 Ml-Ns) 30 unit in 500 mls @ 500 mls/hr IV TITRATE [facility] Tranexamic Acid 1,000 mg/ (Sodium Chloride) 110 mls @ 660 mls/hr IV ONETIME PRN PRN Reason: Bleeding Oxytocin/Sodium Chloride (Oxytocin 30 Unit/500 Ml-Ns) 30 unit in 500 mls @ 2 mls/hr IV TITRATE [facility]; Protocol Last Titration: 09/13/18 11:37 Dose: 8 munits/min, 8 mls/hr Lidocaine HCl (Xylocaine 1%) 50 ml INJECT ONETIME PRN PRN Reason: Laceration repair Methylergonovine Maleate (Methergine) 0.2 mg IM ASDIRECTED PRN PRN Reason: Post Hemorrhage Misoprostol (Cytotec) 200 mcg PO ONETIME PRN PRN Reason: Post Hemorrhage Misoprostol (Cytotec) 25 mcg PO Q4H [facility] Last Admin: 09/12/18 21:21 Dose: 25 mcg Misoprostol (Cytotec) 25 mcg VAG Q4H ADE Last Admin: 09/12/18 21:22 Dose: 25 mcg Nalbuphine HCl (Nubain) 10 mg IVPUSH Q1H PRN PRN Reason: Pain (severe 7-10) Ondansetron HCl (Zofran) 4 mg IVPUSH Q6H PRN PRN Reason: Nausea/Vomiting Sodium Chloride (Saline Flush) 10 ml FLUSH ASDIRECTED PRN PRN Reason: Keep Vein Open Sodium Chloride (Saline Flush) 2.5 ml FLUSH ASDIRECTED PRN PRN Reason: Keep Vein Open Sodium Chloride (Normal Saline) 10 ml IV ASDIRECTED PRN PRN Reason: IV Use Sterile Water (Sterile Water For Irrigation) 1,000 ml IRR ASDIRECTED PRN PRN Reason: delivery - Exam General: Reports: Alert, Oriented HEENT: Reports: Pupils Equal, Pupils Reactive, EOMI, Mucous Membr. Moist/[place] Neck: Reports: Supple Lungs: Reports: Clear to Auscultation, Normal Respiratory Effort Cardiovascular: Reports: Regular Rate, Regular Rhythm GI/Abdominal Exam: Normal Bowel Sounds, Soft, Non-Tender, No Organomegaly, No Distention, No Abnormal Bruit, No Mass, Pelvis Stable (Female) Exam: Normal External Exam, Normal Speculum Exam, Normal Bimanual Exam Rectal (Female) Exam: Normal Exam, Normal Rectal Tone Back Exam: Reports: Normal Inspection, Full Range of Motion Extremities: Normal Inspection, Normal Range of Motion, Non-Tender, No Pedal Edema, Normal Capillary Refill Skin: Reports: Warm, Dry, Intact Wound/Incisions: Reports: Healing Well Neurological: Reports: No New Focal Deficit Psy/Mental Status: Reports: Alert, Normal Affect, Normal Mood
[2018-09-15] MEDS: Ibuprofen 800 MG Tab PO PRN (12:01)
== END 2018-09-15 14:00 | disposition home or self-care (01) | DRG 560 ==
LOC: MW.OB 10:07 → OBSVTOIN 09-13 19:02 → MW.OB 09-13 23:02
PROVIDERS: ADMIT Obstetrics & Gynecology; ATTEND Obstetrics & Gynecology
PROC: 10E0XZZ Delivery of Products of Conception, External Approach (ICD-10-PCS; principal; 2018-09-13)
PROC: 3E033VJ Introduction of Other Hormone into Peripheral Vein, Percutaneous Approach (ICD-10-PCS; 2018-09-13)
PROC: 10907ZC Drainage of Amniotic Fluid, Therapeutic from Products of Conception, Via Natural or Artificial Opening (ICD-10-PCS; 2018-09-13)
DX: O48.0 Post-term pregnancy (principal); Z3A.40 40 weeks gestation of pregnancy; Z37.0 Single live birth
CPT/HCPCS: 36415; 51702; 59025; 59409; 85014; 85018; 85027; 86850; 86900; 86901; A9270-GY; J0595; J2590; J3010; J7120

== ENCOUNTER 2019-05-02 17:52 | Emergency (ER) | payer BC ==
[2019-05-02 18:51] VITALS: BP 122/72; PULSE 88
--- NOTE | 2019-05-02 19:39 | EDM.PDOC ---
ED HPI GENERAL MEDICAL PROBLEM - General Chief Complaint: Abdominal Pain Stated Complaint: ABDOMINAL PAIN Time Seen by Provider: 05/02/19 19:39 Source of Information: Reports: Patient History Limitations: Reports: No Limitations - History of Present Illness INITIAL COMMENTS - FREE TEXT/NARRATIVE: HISTORY AND PHYSICAL: History of present illness: Patient is a 29-year-old female presents to the ED with complaint of abdominal pain and diarrhea. Patient states that since 9am this morning she is having an intermittent sharp abdominal pain that moves around and comes and goes. She states she has had 6 episodes of non bloody diarrhea today. She reports nausea but denies vomiting. She denies fevers or chills, dysuria, hematuria. Review of systems: As per history of present illness and below otherwise all systems reviewed and negative. Past medical history: As per history of present illness and as reviewed below otherwise noncontributory. Surgical history: As per history of present illness and as reviewed below otherwise noncontributory. Social history: No reported history of drug or alcohol abuse. Family history: As per history of present illness and as reviewed below otherwise noncontributory. Physical exam: General: Patient sitting comfortably in no acute distress and nontoxic appearing HEENT: Atraumatic, normocephalic, pupils reactive, negative for conjunctival pallor or scleral icterus, mucous membranes moist, throat clear, neck supple, nontender, trachea midline. No meningeal signs. Lungs: Clear to auscultation, breath sounds equal bilaterally, chest nontender. Heart: S1S2, regular, negative for clicks, rubs, or overt murmur. Abdomen: Soft, nondistended, nontender. Negative for masses or hepatosplenomegaly. Negative for costovertebral tenderness. No rigidity, rebound , guarding. Pelvis: Stable nontender. Genitourinary: Deferred. Rectal: Deferred. Extremities: Atraumatic, negative for cords or calf pain. Neurovascular unremarkable. Neuro: Awake, alert, oriented. Cranial nerves II through XII unremarkable. Cerebellum unremarkable. Motor and sensory unremarkable throughout. Exam nonfocal. Notes: Diagnostics: none Therapeutics: none Prescriptions: none Impression: Viral gastroenteritis Plan: Drink plenty of small sips of fluids throughout the day and bland food as tolerated Follow-up with primary care provider Return to ED as needed as discussed Definitive disposition and diagnosis as appropriate pending reevaluation and review of above. 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 ED EXAM, GI/ABD - Physical Exam Exam: See Below (see dictation) Course - Vital Signs Last Recorded V/S: Last Vital Signs Temp Pulse 88 05/02/19 18:50 Resp 16 05/02/19 18:50 BP 122/72 05/02/19 18:50 Pulse Ox 99 05/02/19 18:50 - Orders/Labs/Meds Labs: Laboratory Tests 05/02/19 05/02/19 Range/Units 19:18 19:18 Urine Color YELLOW Urine Appearance CLEAR Urine pH 6.0 (5.0-8.0) Ur Specific [place] 1.015 (1.001-1.035) Urine Protein NEGATIVE (NEGATIVE) mg/dL Urine Glucose (UA) NEGATIVE (NEGATIVE) mg/dL Urine Ketones >=80 (NEGATIVE) mg/dL Urine Occult Blood TRACE-INTACT H (NEGATIVE) Urine Nitrite NEGATIVE (NEGATIVE) Urine Bilirubin NEGATIVE (NEGATIVE) Urine Urobilinogen 0.2 (<2.0) EU/dL Ur Leukocyte Esterase NEGATIVE (NEGATIVE) Urine RBC 0-1 (0-2/HPF) Urine WBC 0-2 (0-5/HPF) Ur Epithelial Cells FEW (NONE-FEW) Urine Bacteria RARE (NEGATIVE) Urine HCG, Qual NEGATIVE (NEGATIVE) Departure - Departure Time of Disposition: 19:49 Disposition: Home, Self-Care 01 Condition: Good Clinical Impression: Viral gastroenteritis - Discharge Information Referrals: PCP,None [Primary Care Provider] - Forms: ED Department Discharge Additional Instructions: The following information is given to patients seen in the emergency department who are being discharged to home. This information is to outline your options for follow-up care. We provide all patients seen in our emergency department with a follow-up referral. The need for follow-up, as well as the timing and circumstances, are variable depending upon the specifics of your emergency department visit. If you don't have a primary care physician on staff, we will provide you with a referral. We always advise you to contact your personal physician following an emergency department visit to inform them of the circumstance of the visit and for follow-up with them and/or the need for any referrals to a consulting specialist. The emergency department will also refer you to a specialist when appropriate. This referral assures that you have the opportunity for follow-up care with a specialist. All of these measure are taken in an effort to provide you with optimal care, which includes your follow-up. Under all circumstances we always encourage you to contact your private physician who remains a resource for coordinating your care. When calling for follow-up care, please make the office aware that this follow-up is from your recent emergency room visit. If for any reason you are refused follow-up, please contact the [facility] Emergency Department at and asked to speak to the emergency department charge nurse. [facility] [address] [place] [id number] [address] Drink plenty of small sips of fluids throughout the day and bland food as tolerated Follow-up with primary care provider Return to ED as needed as discussed Sepsis Event Note - Evaluation Sepsis Screening Result: No Definite Risk - Focused Exam Vital Signs: Vital Signs Pulse Resp BP Pulse Ox 05/02/19 18:50 88 16 122/72 99 Date Exam was Performed: 05/02/19 Time Exam was Performed: 19:50
== END 2019-05-02 20:19 | disposition home or self-care (01) ==
LOC: MW.ED 17:52
DX: A08.4 Viral intestinal infection, unspecified (principal); J45.909 Unspecified asthma, uncomplicated
CPT/HCPCS: 81001; 81025; 99282; 99284

== ENCOUNTER 2020-04-21 04:49 | Inpatient (IN) | payer OTHER ==
[2020-04-21] MEDS: Lactated Ringers 1,000 ML IV SCH ×3 (05:12→07:59)
--- NOTE | 2020-04-21 05:19 | PCM.LDHP ---
L&D History of Present Illness - General Date of Service: 04/21/20 Admit Problem/Dx: Admission Diagnosis/Problem Admission Diagnosis/Problem 04/21/20 05:13 Deborah is a 30 yo at 39+3 weeks (04/25/2020) that presents today with C/O painful contractions every 4-5 minutes since 0000 today, 8/10 pain with contractions. Reports adequate movement. Denies LOF and vaginal bleeding. O pos, Ab neg, RI, GBS neg. Pos COVID 03/26/2020 with appropriate quarantine completed. NKDA. NST pending. Spontaneous contractions every 5 min lasting 60 seconds noted. Patient has not questions or concerns at this time Source of Information: Patient History Limitations: Reports: No Limitations - History of Present Illness Improves with: Reports: None Worsens with: Reports: None Associated Symptoms: Reports: N - Related Data Allergies/Adverse Reactions: Allergies Allergy/AdvReac Type Severity Reaction Status Date / Time No Known Allergies Allergy Verified 04/13/20 09:36 Home Medications: Home Meds Albuterol [Proventil HFA] 200 puff INH ONETIME PRN 04/13/20 [History] Calcium Carbonate [Tums Extra Strength] 750 mg PO BID 04/13/20 [History] Vits #93/Iron Fum/FA [ Formula Tablet] 1 each PO DAILY 04/13/20 [History] Past Medical History - Past Health History Medical/Surgical History: Denies Medical/Surgical History HEENT History: Reports: None Cardiovascular History: Reports: None Respiratory History: Reports: Asthma Gastrointestinal History: Reports: None Genitourinary History: Reports: None 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: : 2 Para: 1 LMP (Approximate): Musculoskeletal History: Reports: None Neurological History: Reports: None Psychiatric History: Reports: None Endocrine/Metabolic History: Reports: None Hematologic History: Reports: None Immunologic History: Reports: None Dermatologic History: Reports: None - Infectious Disease History Infectious Disease History: Reports: None Social & Family History - Family History Family Medical History: No Pertinent Family History - Tobacco Use Tobacco Use Status *Q: Never Tobacco User - Caffeine Use Caffeine Use: Reports: None - Alcohol Use Alcohol Use History: No - Recreational Drug Use Recreational Drug Use: No - Sexual History Sexual History: Reports: None H&P Review of Systems - Review of Systems: Review Of Systems: Comprehensive ROS is negative, except as noted in HPI. General: Reports: No Symptoms HEENT: Reports: No Symptoms Pulmonary: Reports: No Symptoms Cardiovascular: Reports: No Symptoms Gastrointestinal: Reports: No Symptoms Genitourinary: Reports: No Symptoms Musculoskeletal: Reports: No Symptoms Skin: Reports: No Symptoms Psychiatric: Reports: No Symptoms Neurological: Reports: No Symptoms Hematologic/Lymphatic: Reports: No Symptoms Immunologic: Reports: No Symptoms L&D Exam - Exam Exam: Not Obtained - Vital Signs Vital Signs: See flowsheet - OB Specific Fundal Height In cm: 35 Contraction Duration (sec): 3-5 Contraction Frequency (min): 60-70 Contraction Intensity: Moderate Movement: Active Heart Tones: Present Heart Tones per Min: 140 Heart Rate (FHR) Variability: Moderate (6-25 bmp) Presentation: Vertex (via TAUS) - Piña Score Piña Score Cervix Position: Midposition Piña Score Consistency: Soft Piña Score Effacement: >80% Piña Score Dilation: 3-4 cm Piña Score 's Station: -1 ,0 Piña Score Total: 10 - Exam General: Alert, Oriented, Cooperative, Mild Distress HEENT: Conjunctiva Clear, Mucosa Moist & Blyn, Posterior Pharynx Clear, TMs Clear, PERRLA Neck: Supple, Trachea Midline Lungs: Clear to Auscultation, Normal Respiratory Effort Cardiovascular: Regular Rate, Regular Rhythm GI/Abdominal Exam: Normal Bowel Sounds, Soft, Non-Tender, No Organomegaly, No Distention Rectal Exam: Deferred Genitourinary: Normal external exam, Normal bimanual exam, Enlarged uterus (Gravid uterus) Back Exam: Normal Inspection, Full Range of Motion Extremities: Normal Inspection, Normal Range of Motion, Non-Tender, No Pedal Edema, Normal Capillary Refill Skin: Warm, Dry, Intact Neurological: Cranial Nerves Intact, Reflexes Equal Bilateral Psychiatric: Alert, Normal Affect, Normal Mood - Problem List (1) Uterine contractions SNOMED Code(s): 242604724 ICD Code: [id number] - Status: Acute Current Visit: Yes (2) 39 weeks gestation of SNOMED Code(s): 08418044 ICD Code: Z3A.39 - 39 WEEKS GESTATION OF Status: Acute Current Visit: Yes Problem List Initiated/Reviewed/Updated: Yes Assessment/Plan Comment:: Admit to observation for uterine contractions with onset of spontaneous active labor. Upon reactive NST, may ambulate and hydrotherapy as desired. Monitoring per protocol. May receive epidural. See new orders. Dr. Oh notified and agreeable with POC.
[2020-04-21] MEDS ORDERED: Nalbuphine 10 MG/1 ML Vial IVPUSH PRN (05:25)
[2020-04-21] MEDS ORDERED: Sodium Chloride 0.9% 10 ML SDV IV PRN (05:25)
[2020-04-21] MEDS ORDERED: Methylergonovine 0.2 MG/1 ML Amp IM PRN (05:25)
[2020-04-21] MEDS ORDERED: Sodium Chloride 0.9% 2.5 ML Syringe FLUSH PRN (05:25)
[2020-04-21] MEDS ORDERED: Sodium Chloride 0.9% 10 ML Syringe FLUSH PRN (05:25)
[2020-04-21] MEDS ORDERED: Tranexamic Acid 1,000 MG in Sodium Chloride 0.9% 100 ML IV PRN (05:25)
[2020-04-21] MEDS ORDERED: Misoprostol 200 MCG Tab PO PRN (05:25)
[2020-04-21] MEDS ORDERED: Carboprost Tromethamine 250 MCG/1 ML Amp IM PRN (05:25)
[2020-04-21] MEDS ORDERED: Butorphanol 1 MG/ML SDV IVPUSH PRN (05:25)
[2020-04-21] MEDS ORDERED: Water For Irrigation,Sterile 1,000 ML Container IRR PRN (05:25)
[2020-04-21] MEDS ORDERED: Ondansetron 4 MG/2 ML SDV IVPUSH PRN (05:25)
[2020-04-21] MEDS ORDERED: Lidocaine 1% 50 ML MDV INJECT PRN (05:25)
[2020-04-21] MEDS ORDERED: Oxytocin/0.9 % Sodium Chloride 30 UNIT/500 ML BAG IV SCH (05:30)
[2020-04-21] MEDS ORDERED: fentaNYL 100 MCG/2 ML SDV ONE (06:03)
[2020-04-21] MEDS ORDERED: Ropivacaine HCl/PF 100 ML ONE (06:04)
[2020-04-21] MEDS ORDERED: Ropivacaine 0.2% PF 2 MG/ML 20 ML SDV ONE (06:04)
[2020-04-21] MEDS ORDERED: Water For Injection, Sterile 20 ML ONE (06:29)
[2020-04-21] MEDS ORDERED: ePHEDrine 50 MG/ML SDV ONE (06:29)
--- NOTE | 2020-04-21 06:48 | PCM.PREANE ---
Preanesthetic Assessment - Procedure Proposed Procedure: DELBERT - Anesthesia/Transfusion/Family Hx Anesthesia History: Prior Anesthesia Without Reaction Family History of Anesthesia Reaction: No Transfusion History: No Prior Transfusion(s) Intubation History: Unknown - Review of Systems General: No Symptoms Pulmonary: No Symptoms Cardiovascular: No Symptoms Gastrointestinal: No Symptoms Neurological: No Symptoms Other: Reports: Anxiety - Physical Assessment NPO Status Date: 04/21/20 NPO Status Time: 06:00 Height: 1.68 m Weight: 78.018 kg ASA Class: 1 Mental Status: Alert & Oriented x3 Airway Class: Mallampati = 1 Dentition: Reports: Normal Dentition Thyro-Mental Finger Breadths: 3 Mouth Opening Finger Breadths: 3 ROM/Head Extension: Full Lungs: Clear to Auscultation Cardiovascular: Regular Rate - Lab Values: Laboratory Last Values WBC 11.94 K/uL (4.0-11.0) H 04/21/20 04:58 RBC 4.04 M/uL (4.30-5.90) L 04/21/20 04:58 Hgb 11.2 g/dL (12.0-16.0) L 04/21/20 04:58 Hct 34.1 % (36.0-46.0) L 04/21/20 04:58 MCV 84.4 fL (80.0-98.0) 04/21/20 04:58 MCH 27.7 pg (27.0-32.0) 04/21/20 04:58 MCHC 32.8 g/dL (31.0-37.0) 04/21/20 04:58 RDW Std Deviation 53.2 fl (28.0-62.0) 04/21/20 04:58 RDW Coeff of [place] 17 % (11.0-15.0) H 04/21/20 04:58 Plt Count 284 K/uL (150-400) 04/21/20 04:58 MPV 10.80 fL (7.40-12.00) 04/21/20 04:58 Nucleated RBC % 0.0 /100WBC 04/21/20 04:58 Nucleated RBCs # 0 K/uL 04/21/20 04:58 Blood Type O POSITIVE 04/21/20 04:58 Antibody Screen NEGATIVE 04/21/20 04:58 - Allergies Allergies/Adverse Reactions: Allergies Allergy/AdvReac Type Severity Reaction Status Date / Time No Known Allergies Allergy Verified 04/13/20 09:36 - Blood Blood Available: No Product(s) Available: None - Anesthesia Plan Pre-Op Medication Ordered: None - Acknowledgements Anesthesia Type Planned: Epidural Pt an Appropriate Candidate for the Planned Anesthesia: Yes Alternatives and Risks of Anesthesia Discussed w Pt/Guardian: Yes Pt/Guardian Understands and Agrees with Anesthesia Plan: Yes Additional Comments: Discussed, ? answered, permit signed, accepts, wishes to proceed. 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: Musculoskeletal History: Reports: None Neurological History: Reports: None Psychiatric History: Reports: None Endocrine/Metabolic History: Reports: None Hematologic History: Reports: None Immunologic History: Reports: None Dermatologic History: Reports: None - Infectious Disease History Infectious Disease History: Reports: None - SUBSTANCE USE Tobacco Use Status *Q: Never Tobacco User Recreational Drug Use History: No - HOME MEDS Home Medications: Home Meds Albuterol [Proventil HFA] 200 puff INH ONETIME PRN 04/13/20 [History] Calcium Carbonate [Tums Extra Strength] 750 mg PO BID 04/13/20 [History] Vits #93/Iron Fum/FA [ Formula Tablet] 1 each PO DAILY 04/13/20 [History] - CURRENT (IN HOUSE) MEDS Current Meds: Current Medications Butorphanol Tartrate (Stadol) 1 mg IVPUSH Q1H PRN PRN Reason: Pain Carboprost Tromethamine (Hemabate Ds) 250 mcg IM ASDIRECTED PRN PRN Reason: Post Hemorrhage Oxytocin/Sodium Chloride (Oxytocin 30 Unit/500 Ml-Ns) 30 unit in 500 mls @ 999 mls/hr IV TITRATE ADE Tranexamic Acid 1,000 mg/ (Sodium Chloride) 110 mls @ 660 mls/hr IV ONETIME PRN PRN Reason: Bleeding Lactated Ringer's (Ringers, Lactated) 1,000 mls @ 150 mls/hr IV ASDIRECTED ADE Lidocaine HCl (Xylocaine 1%) 50 ml INJECT ONETIME PRN PRN Reason: Laceration repair Methylergonovine Maleate (Methergine) 0.2 mg IM ASDIRECTED PRN PRN Reason: Post Hemorrhage Misoprostol (Cytotec) 200 mcg PO ONETIME PRN PRN Reason: Post Hemorrhage Nalbuphine HCl (Nubain) 10 mg IVPUSH Q1H PRN PRN Reason: Pain (severe 7-10) Ondansetron HCl (Zofran) 4 mg IVPUSH Q6H PRN PRN Reason: Nausea/Vomiting Sodium Chloride (Saline Flush) 10 ml FLUSH ASDIRECTED PRN PRN Reason: Keep Vein Open Sodium Chloride (Saline Flush) 2.5 ml FLUSH ASDIRECTED PRN PRN Reason: Keep Vein Open Sodium Chloride (Normal Saline) 10 ml IV ASDIRECTED PRN PRN Reason: IV Use Sterile Water (Sterile Water For Irrigation) 1,000 ml IRR ASDIRECTED PRN PRN Reason: delivery Discontinued Medications Ephedrine Sulfate (Ephedrine Sulfate) Confirm Administered Dose 50 mg .ROUTE .STK-MED ONE Stop: 04/21/20 06:30 Fentanyl (Sublimaze) Confirm Administered Dose 100 mcg .ROUTE .STK-MED ONE Stop: 04/21/20 06:04 Ropivacaine (Naropin 0.2%) Confirm Administered Dose 100 mls @ as directed .ROUTE .STK-MED ONE Stop: 04/21/20 06:05 Sterile Water (Sterile Water For Injection) Confirm Administered Dose 20 mls @ as directed .ROUTE .STK-MED ONE Stop: 04/21/20 06:30 Ropivacaine (Naropin 0.2%) Confirm Administered Dose 20 ml .ROUTE .STK-MED ONE Stop: 04/21/20 06:05
[2020-04-21] MEDS ORDERED: Oxytocin/0.9 % Sodium Chloride 30 UNIT/500 ML BAG ONE (07:06)
--- NOTE | 2020-04-21 10:06 | PCM.DEL ---
L & D Note - General Info Date of Service: 04/21/20 Mother's Due Date: 04/25/20 - Delivery Note Labor: Spontaneous Delivery Outcome: Livebirth Infant Delivery Method: Spontaneous Vaginal Delivery-Single Presentation: Vertex (via TAUS) Nuchal Cord: None Anesthesia Type: Epidural Amniotic Fluid Description: Clear Episiotomy Type: None Laceration: None Cord: 3 Vessels Estimated Blood Loss: 150 [place]: Stimulated, Warmed Score 1 min: 9 Score 5 min: 9 Delivery Comments (Free Text/Narrative):: 30yo G2 now P2002 S/P uncomplicated @ 39w 3d course was unremarkable. of a live male, weight pending and Apgars 9/9. Delivered FABIAN, no nuchal cord, No meconium. Vertex and body delivered without difficulty. Cord clamped and cut. Nose and mouth bulb suctioned; Baby placed on Mom's abdomen. Placenta delivered spontaneously, intact. Fundus firm, minimal bleeding. Placenta appears intact with 3 vessel cord. Perineum and vagina inspected, no laceration. EBL 150cc. Patient tolerated procedure well, recovering in LDR. Infant by her side. - General Info Date of Service: 04/21/20 Admission Dx/Problem (Free Text): Admission Diagnosis/Problem Admission Diagnosis/Problem 04/21/20 05:13 Deborah is a 30 yo at 39+3 weeks (04/25/2020) that presents today with C/O painful contractions every 4-5 minutes since 0000 today, 8/10 pain with contractions. Reports adequate movement. Denies LOF and vaginal bleeding. O pos, Ab neg, RI, GBS neg. Pos COVID 03/26/2020 with appropriate quarantine completed. NKDA. NST pending. Spontaneous contractions every 5 min lasting 60 seconds noted. Patient has not questions or concerns at this time Subjective Update: AROM at 8:10am, clear moderate amount of fluid Functional Status: Reports: Pain Controlled - Review of Systems General: Reports: No Symptoms HEENT: Reports: No Symptoms Pulmonary: Reports: No Symptoms Cardiovascular: Reports: No Symptoms Gastrointestinal: Reports: No Symptoms Genitourinary: Reports: No Symptoms Musculoskeletal: Reports: No Symptoms Skin: Reports: No Symptoms Neurological: Reports: No Symptoms Psychiatric: Reports: No Symptoms - Patient Data Weight - Most Recent: 78.018 kg Lab Results Last 24 Hours: Laboratory Results - last 24 hr 04/21/20 04/21/20 Range/Units 04:58 04:58 WBC 11.94 H (4.0-11.0) K/uL RBC 4.04 L (4.30-5.90) M/uL Hgb 11.2 L (12.0-16.0) g/dL Hct 34.1 L (36.0-46.0) % MCV 84.4 (80.0-98.0) fL MCH 27.7 (27.0-32.0) pg MCHC 32.8 (31.0-37.0) g/dL RDW Std Deviation 53.2 (28.0-62.0) fl RDW Coeff of [place] 17 H (11.0-15.0) % Plt Count 284 (150-400) K/uL MPV 10.80 (7.40-12.00) fL Nucleated RBC % 0.0 /100WBC Nucleated RBCs # 0 K/uL Blood Type O POSITIVE Antibody Screen NEGATIVE Med Orders - Current: Current Medications Butorphanol Tartrate (Stadol) 1 mg IVPUSH Q1H PRN PRN Reason: Pain Carboprost Tromethamine (Hemabate Ds) 250 mcg IM ASDIRECTED PRN PRN Reason: Post Hemorrhage Oxytocin/Sodium Chloride (Oxytocin 30 Unit/500 Ml-Ns) 30 unit in 500 mls @ 999 mls/hr IV TITRATE [facility] Tranexamic Acid 1,000 mg/ (Sodium Chloride) 110 mls @ 660 mls/hr IV ONETIME PRN PRN Reason: Bleeding Lactated Ringer's (Ringers, Lactated) 1,000 mls @ 150 mls/hr IV ASDIRECTED [facility] Last Admin: 04/21/20 07:59 Dose: 999 mls/hr Documented by: Lidocaine HCl (Xylocaine 1%) 50 ml INJECT ONETIME PRN PRN Reason: Laceration repair Methylergonovine Maleate (Methergine) 0.2 mg IM ASDIRECTED PRN PRN Reason: Post Hemorrhage Misoprostol (Cytotec) 200 mcg PO ONETIME PRN PRN Reason: Post Hemorrhage Nalbuphine HCl (Nubain) 10 mg IVPUSH Q1H PRN PRN Reason: Pain (severe 7-10) Ondansetron HCl (Zofran) 4 mg IVPUSH Q6H PRN PRN Reason: Nausea/Vomiting Sodium Chloride (Saline Flush) 10 ml FLUSH ASDIRECTED PRN PRN Reason: Keep Vein Open Sodium Chloride (Saline Flush) 2.5 ml FLUSH ASDIRECTED PRN PRN Reason: Keep Vein Open Sodium Chloride (Normal Saline) 10 ml IV ASDIRECTED PRN PRN Reason: IV Use Sterile Water (Sterile Water For Irrigation) 1,000 ml IRR ASDIRECTED PRN PRN Reason: delivery Discontinued Medications Ephedrine Sulfate (Ephedrine Sulfate) Confirm Administered Dose 50 mg .ROUTE .STK-MED ONE Stop: 04/21/20 06:30 Fentanyl (Sublimaze) Confirm Administered Dose 100 mcg .ROUTE .STK-MED ONE Stop: 04/21/20 06:04 Ropivacaine (Naropin 0.2%) Confirm Administered Dose 100 mls @ as directed .ROUTE .[employer]-MED ONE Stop: 04/21/20 06:05 Sterile Water (Sterile Water For Injection) Confirm Administered Dose 20 mls @ as directed .ROUTE .[employer]BONE-MED ONE Stop: 04/21/20 06:30 Oxytocin/Sodium Chloride (Oxytocin 30 Unit/500 Ml-Ns) Confirm Administered Dose 30 unit in 500 mls @ as directed .ROUTE .[employer]-MED ONE Stop: 04/21/20 07:07 Last Admin: 04/21/20 08:15 Dose: 2 mls/hr Documented by: Ropivacaine (Naropin 0.2%) Confirm Administered Dose 20 ml .ROUTE .STSI-BONE-MED ONE Stop: 04/21/20 06:05 - Exam General: Alert, Oriented Lungs: Normal Respiratory Effort Cardiovascular: Regular Rate GI/Abdominal Exam: Soft, Non-Tender (Female) Exam: Normal External Exam Extremities: Normal Inspection Psy/Mental Status: Alert, Normal Affect, Normal Mood - Problem List & Annotations (1) Term delivered SNOMED Code(s): 52004081, 242919563 Code(s): O80 - ENCOUNTER FOR FULL-TERM UNCOMPLICATED DELIVERY Status: Acute Priority: High Current Visit: Yes (2) 39 weeks gestation of SNOMED Code(s): 90548314 Code(s): Z3A.39 - 39 WEEKS GESTATION OF Status: Acute Priority: High Current Visit: Yes - Problem List Review Problem List Initiated/Reviewed/Updated: Yes - My Orders Last 24 Hours: My Active Orders 04/21/20 05:25 Patient Status [ADT] Routine - Plan Plan:: S/P uncomplicated . Mom and baby are well. Routine care
--- NOTE | 2020-04-21 11:41 | PCM48HPAN ---
Post Anesthesia Note - EVALUATION WITHIN 48HRS OF ANESTHETIC Vital Signs in Normal Range: Yes Patient Participated in Evaluation: Yes Respiratory Function Stable: Yes Airway Patent: Yes Cardiovascular Function Stable: Yes Hydration Status Stable: Yes Pain Control Satisfactory: Yes Nausea and Vomiting Control Satisfactory: Yes Mental Status Recovered: Yes - COMMENTS/OBSERVATIONS Free Text/Narrative:: Did well. No problems post.
[2020-04-21] MEDS ORDERED: Acetaminophen 500 MG Tab PO PRN ×2 (16:15)
[2020-04-21] MEDS ORDERED: Ibuprofen 400 MG Tab PO PRN (16:15)
[2020-04-21] MEDS ORDERED: Docusate Sodium 100 MG Cap PO PRN (16:15)
[2020-04-21] MEDS ORDERED: Benzocaine/Menthol 20%-0.5% Spray 78 GM Cannister TOP PRN (16:15)
[2020-04-21] MEDS ORDERED: Lanolin 100% Cream 7 GM Tube TOP PRN (16:15)
[2020-04-21] MEDS ORDERED: Bisacodyl 10 MG Supp RECTAL PRN (16:15)
[2020-04-21] MEDS ORDERED: Witch Hazel Medicated Pads 40/Jar TOP PRN (16:15)
[2020-04-21] MEDS: Ibuprofen 800 MG Tab PO PRN ×2 (17:20→23:49)
[2020-04-22 08:27] VITALS: BP 107/60; PULSE 62
--- NOTE | 2020-04-22 09:54 | PCM48HPAN ---
Post Anesthesia Note - EVALUATION WITHIN 48HRS OF ANESTHETIC Vital Signs in Normal Range: Yes Patient Participated in Evaluation: Yes Respiratory Function Stable: Yes Airway Patent: Yes Cardiovascular Function Stable: Yes Hydration Status Stable: Yes Pain Control Satisfactory: Yes Nausea and Vomiting Control Satisfactory: Yes Mental Status Recovered: Yes Vital Signs: Last Vital Signs Temp 36.6 C 04/22/20 08:26 Pulse 62 04/22/20 08:26 Resp 16 04/22/20 08:26 BP 107/60 04/22/20 08:26 Pulse Ox 96 04/22/20 08:26 - COMMENTS/OBSERVATIONS Free Text/Narrative:: Doing well.
--- NOTE | 2020-04-22 12:20 | PCM.DCSUM1 ---
Discharge Summary - Hospital Course Free Text/Narrative:: Deborah is a 30 yo G2 now P2 at 39+3 weeks (04/25/2020) who presented in active labor. Denied LOF and vaginal bleeding. O pos, Ab neg, RI, GBS neg. Pos COVID 03/26/2020 with appropriate quarantine completed. S/P uncomplicated of baby boy. Both Mom and baby had unremarkable course. Both are ready for discharge. Diagnosis: Stroke: No - Discharge Data Discharge Date: 04/22/20 Discharge Disposition: Home, Self-Care 01 Condition: Good - Referral to Home Health Primary Care Physician: Jeancarlos Raphael MD - Discharge Diagnosis/Problem(s) (1) Term delivered SNOMED Code(s): 67523697, 549609132 ICD Code: O80 - ENCOUNTER FOR FULL-TERM UNCOMPLICATED DELIVERY Status: Acute Priority: High Current Visit: Yes (2) 39 weeks gestation of SNOMED Code(s): 45221506 ICD Code: Z3A.39 - 39 WEEKS GESTATION OF Status: Acute Priority: High Current Visit: Yes - Patient Instructions Diet: Usual Diet as Tolerated Activity: As Tolerated - Discharge Plan *PRESCRIPTION DRUG MONITORING PROGRAM REVIEWED*: Not Applicable *COPY OF PRESCRIPTION DRUG MONITORING REPORT IN PATIENT NOAH: Not Applicable Home Medications: Home Meds Albuterol [Proventil HFA] 200 puff INH ONETIME PRN 04/13/20 [History] Calcium Carbonate [Tums Extra Strength] 750 mg PO BID 04/13/20 [History] Vits #93/Iron Fum/FA [ Formula Tablet] 1 each PO DAILY 04/13/20 [History] Patient Handouts: Care After Vaginal Delivery - Discharge Summary/Plan Comment DC Time >30 min.: Yes - General Info Date of Service: 04/22/20 Admission Dx/Problem (Free Text: Admission Diagnosis/Problem Admission Diagnosis/Problem 04/21/20 05:13 Deborah is a 30 yo at 39+3 weeks (04/25/2020) that presents today with C/O painful contractions every 4-5 minutes since 0000 today, 8/10 pain with contractions. Reports adequate movement. Denies LOF and vaginal bleeding. O pos, Ab neg, RI, GBS neg. Pos COVID 03/26/2020 with appropriate quarantine completed. NKDA. NST pending. Spontaneous contractions every 5 min lasting 60 seconds noted. Patient has not questions or concerns at this time Subjective Update: course unremarkable Functional Status: Reports: Pain Controlled - Review of Systems General: Reports: No Symptoms HEENT: Reports: No Symptoms Pulmonary: Reports: No Symptoms Cardiovascular: Reports: No Symptoms Gastrointestinal: Reports: No Symptoms Genitourinary: Reports: No Symptoms Musculoskeletal: Reports: No Symptoms Skin: Reports: No Symptoms Neurological: Reports: No Symptoms Psychiatric: Reports: No Symptoms - Patient Data Vitals - Most Recent: Last Vital Signs Temp 97.8 F 04/22/20 08:26 Pulse 62 04/22/20 08:26 Resp 16 04/22/20 08:26 BP 107/60 04/22/20 08:26 Pulse Ox 96 04/22/20 08:26 Weight - Most Recent: 78.018 kg Lab Results - Last 24 hrs: Laboratory Results - last 24 hr 04/22/20 Range/Units 05:58 Hgb 10.7 L (12.0-16.0) g/dL Hct 33.8 L (36.0-46.0) % Med Orders - Current: Current Medications Acetaminophen (Tylenol Extra Strength) 500 mg PO Q4H PRN PRN Reason: Pain Acetaminophen (Tylenol Extra Strength) 1,000 mg PO Q4H PRN PRN Reason: Pain Last Admin: 04/21/20 19:47 Dose: 1,000 mg Documented by: Benzocaine/Menthol (Dermoplast Pain Relief 20%-0.5% [place]) 78 gm TOP ASDIRECTED PRN PRN Reason: Perineal Comfort Measure Last Admin: 04/21/20 17:20 Dose: 1 canister Documented by: Bisacodyl (Dulcolax) 10 mg RECTAL ONETIME PRN PRN Reason: Constipation Butorphanol Tartrate (Stadol) 1 mg IVPUSH Q1H PRN PRN Reason: Pain Carboprost Tromethamine (Hemabate Ds) 250 mcg IM ASDIRECTED PRN PRN Reason: Post Hemorrhage Docusate Sodium (Colace) 100 mg PO BID PRN PRN Reason: Constipation Emollient Ointment (Lansinoh Hpa) 0 gm TOP ASDIRECTED PRN PRN Reason: Sore Nipples Oxytocin/Sodium Chloride (Oxytocin 30 Unit/500 Ml-Ns) 30 unit in 500 mls @ 999 mls/hr IV TITRATE [facility] Tranexamic Acid 1,000 mg/ (Sodium Chloride) 110 mls @ 660 mls/hr IV ONETIME PRN PRN Reason: Bleeding Lactated Ringer's (Ringers, Lactated) 1,000 mls @ 150 mls/hr IV ASDIRECTED ADE Last Admin: 04/21/20 07:59 Dose: 999 mls/hr Documented by: Ibuprofen (Motrin) 400 mg PO Q4H PRN PRN Reason: Pain Ibuprofen (Motrin) 800 mg PO Q6H PRN PRN Reason: Pain Last Admin: 04/21/20 23:49 Dose: 800 mg Documented by: Lidocaine HCl (Xylocaine 1%) 50 ml INJECT ONETIME PRN PRN Reason: Laceration repair Methylergonovine Maleate (Methergine) 0.2 mg IM ASDIRECTED PRN PRN Reason: Post Hemorrhage Misoprostol (Cytotec) 200 mcg PO ONETIME PRN PRN Reason: Post Hemorrhage Nalbuphine HCl (Nubain) 10 mg IVPUSH Q1H PRN PRN Reason: Pain (severe 7-10) Ondansetron HCl (Zofran) 4 mg IVPUSH Q6H PRN PRN Reason: Nausea/Vomiting Sodium Chloride (Saline Flush) 10 ml FLUSH ASDIRECTED PRN PRN Reason: Keep Vein Open Sodium Chloride (Saline Flush) 2.5 ml FLUSH ASDIRECTED PRN PRN Reason: Keep Vein Open Sodium Chloride (Normal Saline) 10 ml IV ASDIRECTED PRN PRN Reason: IV Use Sterile Water (Sterile Water For Irrigation) 1,000 ml IRR ASDIRECTED PRN PRN Reason: delivery Witch Mandy (Tucks) 1 pad TOP ASDIRECTED PRN PRN Reason: comfort care Last Admin: 04/21/20 17:20 Dose: 1 tub Documented by: Discontinued Medications Ephedrine Sulfate (Ephedrine Sulfate) Confirm Administered Dose 50 mg .ROUTE .STK-MED ONE Stop: 04/21/20 06:30 Fentanyl (Sublimaze) Confirm Administered Dose 100 mcg .ROUTE .STK-MED ONE Stop: 04/21/20 06:04 Ropivacaine (Naropin 0.2%) Confirm Administered Dose 100 mls @ as directed .ROUTE .STK-MED ONE Stop: 04/21/20 06:05 Sterile Water (Sterile Water For Injection) Confirm Administered Dose 20 mls @ as directed .ROUTE .[employer]-MED ONE Stop: 04/21/20 06:30 Oxytocin/Sodium Chloride (Oxytocin 30 Unit/500 Ml-Ns) Confirm Administered Dose 30 unit in 500 mls @ as directed .ROUTE .[employer]CA ONE Stop: 04/21/20 07:07 Last Admin: 04/21/20 08:15 Dose: 2 mls/hr Documented by: Ropivacaine (Naropin 0.2%) Confirm Administered Dose 20 ml .ROUTE .[employer].CA ONE Stop: 04/21/20 06:05 - Exam General: Reports: Alert, Oriented HEENT: Reports: Pupils Equal Lungs: Reports: Normal Respiratory Effort Cardiovascular: Reports: Regular Rate GI/Abdominal Exam: Soft, Non-Tender Extremities: Normal Inspection Psy/Mental Status: Reports: Alert, Normal Affect, Normal Mood
[2020-04-22] MEDS: Ibuprofen 800 MG Tab PO PRN (12:32)
== END 2020-04-22 14:00 | disposition home or self-care (01) | DRG 807 ==
LOC: MW.OB 04:49 → MW.OBCHECK 04:49 → UNDOADMOB 04:51 → MW.OB 04:51 → OBSVTOIN 09:40 → MW.OB 13:05
PROVIDERS: ADMIT Obstetrics & Gynecology Obstetrics; ATTEND Obstetrics & Gynecology Obstetrics
PROC: 10E0XZZ Delivery of Products of Conception, External Approach (ICD-10-PCS; principal; 2020-04-21)
PROC: 10907ZC Drainage of Amniotic Fluid, Therapeutic from Products of Conception, Via Natural or Artificial Opening (ICD-10-PCS; 2020-04-21)
PROC: 3E0R3BZ Introduction of Anesthetic Agent into Spinal Canal, Percutaneous Approach (ICD-10-PCS; 2020-04-21)
DX: O80 Encounter for full-term uncomplicated delivery (principal); Z37.0 Single live birth; Z3A.39 39 weeks gestation of pregnancy
CPT/HCPCS: 01967; 36415; 59409; 85014; 85018; 85027; 86592; 86850; 86900; 86901; A9270-GY; J2590; J2795; J3010; J7120

== ENCOUNTER 2023-06-11 20:20 | Inpatient (IN) | payer MEDICAID ==
[2023-06-11] MEDS ORDERED: Sodium Chloride 0.9% 20 ML SDV IV PRN (20:28)
[2023-06-11] MEDS ORDERED: Carboprost Tromethamine 250 MCG/1 mL Vial IM PRN (20:28)
[2023-06-11] MEDS ORDERED: Methylergonovine 0.2 MG/1 ML Amp IM PRN (20:28)
[2023-06-11] MEDS ORDERED: Misoprostol 200 MCG Tab PO PRN (20:28)
[2023-06-11] MEDS ORDERED: Nalbuphine 10 MG/0.5 ML Syringe IVPUSH PRN (20:28)
[2023-06-11] MEDS ORDERED: Water For Irrigation,Sterile 1,000 ML Container IRR PRN (20:28)
[2023-06-11] MEDS ORDERED: Sodium Chloride 0.9% 2.5 ML Syringe FLUSH PRN (20:28)
[2023-06-11] MEDS ORDERED: Lidocaine 1% 50 ML MDV INJECT PRN (20:28)
[2023-06-11] MEDS ORDERED: Ondansetron 4 MG/2 ML SDV IVPUSH PRN (20:28)
[2023-06-11] MEDS ORDERED: Sodium Chloride 0.9% 10 ML Syringe FLUSH PRN (20:28)
[2023-06-11] MEDS ORDERED: Tranexamic Acid IN NACL,ISO-OS 1,000 MG in Premix Bag 1 BAG IV PRN (20:28)
[2023-06-11] MEDS ORDERED: Oxytocin/0.9 % Sodium Chloride 30 UNIT/500 ML BAG IV SCH (20:30)
[2023-06-11 21:04] LABS: HEMATOCRIT 31.4 % (37.0-47.0); MEAN CORPUSCULAR HEMOGLOBIN 30.9 pg (28.0-32.0); MEAN CORPUSCULAR VOLUME 88.2 fL (83.0-99.0); MEAN PLATELET VOLUME 10.6 fL (9.4-12.3); PLATELET COUNT,PLT 233 K/uL (150-400); RED BLOOD CELL COUNT 3.56 M/uL (4.10-5.30); WHITE BLOOD CELL COUNT,WBC 10.41 K/uL (3.9-11.3)
[2023-06-11] MEDS: Calcium Carbonate 500 MG Tab.Chew PO PRN (21:26)
[2023-06-12] MEDS: Lactated Ringers 1,000 ML IV SCH (08:08)
[2023-06-12] MEDS ORDERED: Phenylephrine HCl 0.5 MG/5 ML AMP ONE (08:43)
[2023-06-12] MEDS ORDERED: Bupivacaine 0.5% 10 ML SDV ONE (08:43)
[2023-06-12] MEDS: Ropivacaine HCl/PF 200 ML ONE (09:00)
[2023-06-12] MEDS ORDERED: Phenylephrine HCl 0.5 MG/5 ML AMP IVPUSH PRN (09:17)
[2023-06-12] MEDS ORDERED: ePHEDrine 50 MG/ML SDV IVPUSH PRN ×2 (09:17)
[2023-06-12] MEDS ORDERED: Ropivacaine HCl/PF 400 MG in Premix Bag 1 BAG EPIDUR SCH (09:30)
[2023-06-12] MEDS: Oxytocin/0.9 % Sodium Chloride 30 UNIT/500 ML BAG IV SCH (11:22)
[2023-06-12] MEDS ORDERED: Docusate Sodium 100 MG Cap PO PRN (14:32)
[2023-06-12] MEDS ORDERED: Lanolin 100% Cream 7 GM Tube TOP PRN (14:32)
[2023-06-12] MEDS: Ibuprofen 800 MG Tab PO PRN (20:24)
[2023-06-13] MEDS: Benzocaine/Menthol 20%-0.5% Spray 78 GM Cannister TOP PRN (00:16)
[2023-06-13] MEDS: Witch Hazel Medicated Pads 40/Jar TOP PRN (00:17)
[2023-06-13] MEDS: Calcium Carbonate 500 MG Tab.Chew PO ONE (04:31)
[2023-06-13 06:22] LABS: HEMATOCRIT 32.9 % (37.0-47.0); HEMOGLOBIN 11.1 g/dL (12.0-16.0)
[2023-06-13] MEDS: Acetaminophen 500 MG Tab PO PRN (08:03)
[2023-06-13] MEDS: Calcium Carbonate 500 MG Tab.Chew PO PRN (12:38)
[2023-06-13 16:32] VITALS: BP 121/69; PULSE 72
== END 2023-06-13 17:32 | disposition home or self-care (01) | DRG 807 ==
LOC: MW.OBCHECK 20:20 → MW.OB 20:22 → MW.OBCHECK 20:45 → OBSVTOIN 06-12 14:28 → MW.OB 06-12 19:00
PROVIDERS: ADMIT Obstetrics & Gynecology Obstetrics; ATTEND Obstetrics & Gynecology Obstetrics
PROC: 10E0XZZ Delivery of Products of Conception, External Approach (ICD-10-PCS; principal; 2023-06-12)
DX: O42.02 Full-term premature rupture of membranes, onset of labor within 24 hours of rupture (principal); Z37.0 Single live birth; Z3A.39 39 weeks gestation of pregnancy
CPT/HCPCS: 36415; 51702; 59025; 59409; 84112; 85014; 85018; 85027; 86592; 86850; 86900; 86901; A9270-GY; J0665; J2371; J2590; J2795; J7120